=== PATIENT | male | born 1970 | race Caucasian/White ===

== ENCOUNTER → 2017-10-01 08:45 | Outpatient (CLI) | payer MEDICAID ==
[~2017-10-01 08:45] MED LIST: ELOCON45 GM TOPICAL; HUMIRA; LEVOTHYROXINE50 MCG PO; MESALAMINE 1.2 GM; TOPROL XL50 MG PO; TYLENOL W/CODEI1 TAB PO
[2017-10-01 09:19] LABS: BASOPHILS 0.6 % (0-2); EOSINOPHILS 2.4 % (0-7); HEMATOCRIT 50.5 % (42.0-54.0); HEMOGLOBIN 16.9 g/dL (13.5-17.5); IMMATURE GRANULOCYTES 0.3 % (0-5); LYMPHOCYTES 25.4 % (15-50); MCHC 33.5 g/dL (31.0-37.0); MCV 92.7 fL (80.0-100.0); MEAN PLATELET VOLUME 10.6 fL (7.4-10.4); MONOCYTES 7.2 % (2-11); NEUTROPHILS 64.1 % (40-80); PLATELET COUNT 177 10x3/uL (130-400); RBC 5.45 10x6/uL (4.20-6.10); RDW 14.3 % (11.5-14.5); WBC 10.9 10x3/uL (4.8-10.8)
[2017-10-01 09:26] LABS: ALBUMIN 3.2 g/dL (3.4-5.0); ANION GAP 10.6 mmol/L (8-16); BILIRUBIN - TOTAL 0.88 mg/dL (0.2-1.3); CALCIUM 9.1 mg/dL (8.5-10.1); CARBON DIOXIDE 26.6 mmol/L (21.0-32.0); CREATININE - SERUM 1.3 mg/dL (0.6-1.3); POTASSIUM - SERUM 4.2 mmol/L (3.5-5.1); PROTEIN - SERUM 8.6 g/dL (6.4-8.2)
[2017-10-01 10:43] LABS: ERYTHROCYTE SEDIMENTATION RATE 17 mm/hr (0-15)
[2017-11-03 11:28] VITALS: BMI 50.9
== END | disposition home or self-care (01) ==
LOC: D.LAB 08:45 → D.CT 10:00
PROVIDERS: Internal Medicine Gastroenterology
DX: Z80.0 Family history of malignant neoplasm of digestive organs (principal); K50.90 Crohn's disease, unspecified, without complications; R10.32 Left lower quadrant pain

== ENCOUNTER 2017-11-03 10:39 | Day surgery (SDC) | payer MEDICAID ==
[~2017-11-03] VITALS: Ht 185.4 cm; Wt 175.0 kg
--- NOTE | ~2017-11-03 | OP ---
PATIENT NAME: CHAD CARTER MEDICAL RECORD: [id number] :72 LOCATION:[facility] ADMISSION DATE: SURGEON: ROSA CASTANEDA DO DATE OF OPERATION: 11/03/2017 PROCEDURE: Colonoscopy with polypectomy and biopsies. INDICATIONS FOR PROCEDURE: Family history positive for colon cancer in the father, Crohn's disease, left lower quadrant abdominal pain, altered bowel function, nausea. The patient's last colonoscopy was June 052014. SCOPE: Olympus video pediatric colonoscope. MEDICATIONS: Propofol 620 mg IV per anesthesia. WITHDRAWAL TIME: 12 minutes. ESTIMATED BLOOD LOSS: Minimal. COMPLICATIONS: None. FINDINGS: Informed consent was given. The patient was made comfortable with the above medication. After reaching an adequate level of sedation by slow IV push, the patient was placed on his left side. A digital rectal examination was performed and was normal. The endoscope was then advanced under direct visualization through the rectum to the terminal ileum. The endoscope was slowly withdrawn and mucosa was carefully examined. The prep quality was good. There were no obvious signs of inflammation, ulceration, erosions, or other abnormalities noted within the terminal ileum. Random cold forceps biopsies were taken from the site. There was no colitis evident within the colon itself. There were no ulcerations, erosions, changes in vascular pattern, or other findings that would be consistent with colitis. Two polyps were located on the examination. The first was a benign appearing sessile polyp which was located in the descending colon and measured approximately 5-mm in diameter. It was removed using hot forceps in 1 piece and completely retrieved. Second polyp was located in the sigmoid colon. It was a benign appearing sessile polyp, which measured approximately 4 mm in diameter and was removed in 1 piece using hot forceps and completely retrieved. There was evidence of mild to moderate diverticulosis involving the sigmoid colon without evidence of diverticulitis. Retroflexion was performed in the rectum with a normal appearing rectal wall. The endoscope was withdrawn from the patient. The patient tolerated the procedure well and there were no complications. IMPRESSION: 1. Two polyps as described above removed using hot forceps. 2. Midw-ta-gnqgwgta diverticulosis involving the sigmoid colon without evidence of diverticulitis. 3. History of Crohn disease. PLAN AND RECOMMENDATIONS: 1. Discharge home when recovery parameters are met. 2. Follow up biopsy specimen results. 3. High fiber diet. 4. Continue current medications. 5. The patient is scheduled to follow up with Dr. Kasper within the next couple OPERATIVE REPORT [id number] Mode CARTER to determine if surgery is appropriate regarding his history of diverticulitis. If surgery is not planned, I recommend the patient resuming his Humira for his history of spondyloarthropathy as well as Crohn's. 6. Repeat colonoscopy in 2 years regarding the history of Crohn's as well as family history of colon cancer and personal history of polyps. TRANSINT:[id number] Voice Confirmation ID: [id number] DOCUMENT ID: [id number] ROSA CASTANEDA DO at 1651 CC: [id number] DICTATION DATE: 11/03/17 1433 SEARCH ENGINE MARKETING STRATEGIST: 11/03/17 1454 [facility] 11/03/17 [id number] [place] [address]
[2017-11-03] MEDS ORDERED: LEVOTHYROXINE50 MCG PO (11:11)
[2017-11-03] MEDS ORDERED: ELOCON45 GM TOPICAL (11:12)
[2017-11-03] MEDS ORDERED: TOPROL XL50 MG PO (11:12)
[2017-11-03] MEDS ORDERED: TYLENOL W/CODEI1 TAB PO (11:13)
[2017-11-03] MEDS ORDERED: HUMIRA (11:14)
[2017-11-03] MEDS ORDERED: MESALAMINE 1.2 GM (11:14)
[2017-11-03 11:28] VITALS: Ht 185.4 cm; Wt 175.0 kg
[2017-11-03 12:13] LABS: HEMATOCRIT 48.4 % (42.0-54.0); HEMOGLOBIN 16.7 g/dL (13.5-17.5); MCHC 34.5 g/dL (31.0-37.0); MCV 89.8 fL (80.0-100.0); MEAN PLATELET VOLUME 11.2 fL (7.4-10.4); RBC 5.39 10x6/uL (4.20-6.10); RDW 14.2 % (11.5-14.5); WBC 9.9 10x3/uL (4.8-10.8)
== END 2017-11-03 15:32 | disposition home or self-care (01) ==
LOC: D.OPS 10:39
PROVIDERS: Anesthesiology
DX: K63.5 Polyp of colon (principal); K57.30 Diverticulosis of large intestine without perforation or abscess without bleeding; K50.90 Crohn's disease, unspecified, without complications; Z80.0 Family history of malignant neoplasm of digestive organs; Z01.812 Encounter for preprocedural laboratory examination

== ENCOUNTER → 2018-02-16 19:16 | Outpatient (CLI) | payer MEDICAID ==
[2017-11-03 11:28] VITALS: BMI 50.9
== END | disposition home or self-care (01) ==
LOC: D.SLEEP 19:16
DX: G47.33 Obstructive sleep apnea (adult) (pediatric) (principal); Z01.812 Encounter for preprocedural laboratory examination

== ENCOUNTER → 2018-04-02 09:07 | Outpatient (CLI) | payer MEDICAID ==
[2017-11-03 11:28] VITALS: BMI 50.9
[2018-04-02 10:10] LABS: ALBUMIN 2.9 g/dL (3.4-5.0); BILIRUBIN - DIRECT 0.27 mg/dL (0.00-0.30); BILIRUBIN - INDIRECT 0.62 mg/dL (0.00-1.00); BILIRUBIN - TOTAL 0.89 mg/dL (0.2-1.3); PROTEIN - SERUM 8.2 g/dL (6.4-8.2)
== END | disposition home or self-care (01) ==
LOC: D.US 09:07
PROVIDERS: Internal Medicine Gastroenterology
DX: K76.0 Fatty (change of) liver, not elsewhere classified (principal)

== ENCOUNTER 2018-08-17 19:20 | Emergency (ER) | payer MEDICAID ==
[~2018-08-17] VITALS: Ht 185.4 cm; Wt 181.8 kg
[2018-08-17 20:16] VITALS: Ht 185.4 cm; Wt 181.8 kg
[2018-08-17] MEDS ORDERED: HYDROCODON-ACE1 EAC7 PO (20:17)
[2018-08-17] MEDS ORDERED: CYCLOBENZAPRINE10 MG PO (20:18)
[2018-08-18] MEDS ORDERED: TORADOL10 MG PO (03:06)
[2018-08-18 03:21] VITALS: BP 135/60
== END 2018-08-18 03:21 | disposition home or self-care (01) ==
LOC: D.ER 19:20
DX: B34.9 Viral infection, unspecified (principal); M79.18 Myalgia, other site; M54.5 Low back pain

== ENCOUNTER → 2018-10-02 07:57 | Outpatient (CLI) | payer MEDICAID ==
[2018-08-17 20:16] VITALS: BMI 52.8
[~2018-10-02 07:57] MED LIST changes: +CYCLOBENZAPRINE10 MG PO; +HYDROCODON-ACE1 EAC7 PO; +TORADOL10 MG PO
[2018-10-02 09:06] LABS: ALBUMIN 2.8 g/dL (3.4-5.0); BILIRUBIN - DIRECT 0.39 mg/dL (0.00-0.30); BILIRUBIN - INDIRECT 0.88 mg/dL (0.00-1.00); BILIRUBIN - TOTAL 1.27 mg/dL (0.2-1.3); PROTEIN - SERUM 7.4 g/dL (6.4-8.2)
== END | disposition home or self-care (01) ==
LOC: D.US 07:57
PROVIDERS: ATTEND Internal Medicine Gastroenterology
DX: K76.0 Fatty (change of) liver, not elsewhere classified (principal)

== ENCOUNTER → 2018-10-13 10:19 | Outpatient (CLI) | payer MEDICAID | END | disposition home or self-care (01) | LOC: D.CT 10:19 | DX: K50.90 Crohn's disease, unspecified, without complications (principal); R10.9 Unspecified abdominal pain; R19.4 Change in bowel habit ==

== ENCOUNTER → 2018-11-02 07:28 | Outpatient (CLI) | payer MEDICAID ==
[2018-08-17 20:16] VITALS: BMI 52.8
== END | disposition home or self-care (01) ==
LOC: D.HCCARDIO 07:28
PROVIDERS: ATTEND Internal Medicine Interventional Cardiology
DX: I20.9 Angina pectoris, unspecified (principal)

== ENCOUNTER → 2018-11-05 08:03 | Outpatient (CLI) | payer MEDICAID ==
[2018-08-17 20:16] VITALS: BMI 52.8
--- NOTE | ~2018-11-05 | ST ---
PATIENT:CHAD CARTER II MEDICAL RECORD: [id number] SEX: M LOCATION:[facility] ORDER #: ADMISSION DATE: 11/05/18 AGE OF PATIENT: 48 REFERRING PHYSICIAN: INTERPRETING PHYSICIAN: CHERRY GONZALEZ MD DATE OF SERVICE: 11/05/2018 PROCEDURE: Nuclear stress test. INDICATION: Angina, abnormal ECG, and hypertension. He was exercised on standard Lexiscan protocol with 26 mCi of sestamibi injected at peak stress, 9 mCi used previously for rest images. FINDINGS: Gated SPECT reveals a preserved ejection fraction at 67%; however, there is decreased thickening and brightening throughout the inferior segments. SPECT imaging Cardiolite was used as myocardial perfusion agent. There is a fixed perfusion defect inferiorly. This includes the basal, mid, apical inferior segments. There is no evidence of reversibility. In fact, there is improvement or reversed redistribution with stress. OVERALL IMPRESSION: This is a minimally abnormal nuclear stress test, but stable in that there is a fixed perfusion defect inferiorly. No ongoing ischemia and ejection fraction preserved at 67%. Continue medical management of the coronary artery disease and cardiac risk factors. TRANSINT:[id number] Voice Confirmation ID: [id number] DOCUMENT ID: [id number] CHERRY GONZALEZ MD CC: FRANCINE MORENO MD [id number] DICTATION DATE: 11/06/18 0937 WOOL SACKER: 11/07/18 0101 [facility]P CLI 11/05/18 [id number] [place] [address]
== END | disposition home or self-care (01) ==
LOC: D.HCCARDIO 08:03
PROVIDERS: ATTEND Internal Medicine Interventional Cardiology
DX: I20.9 Angina pectoris, unspecified (principal)

== ENCOUNTER → 2019-04-12 07:29 | Outpatient (CLI) | payer MEDICAID ==
[2018-08-17 20:16] VITALS: BMI 52.8
[2019-04-12 08:18] LABS: ALBUMIN 2.6 g/dL (3.4-5.0); BILIRUBIN - DIRECT 0.52 mg/dL (0.00-0.30); BILIRUBIN - INDIRECT 1.07 mg/dL (0.00-1.00); BILIRUBIN - TOTAL 1.59 mg/dL (0.2-1.3); PROTEIN - SERUM 7.2 g/dL (6.4-8.2)
== END | disposition home or self-care (01) ==
LOC: D.US 07:29
PROVIDERS: ATTEND Internal Medicine Gastroenterology
DX: K76.0 Fatty (change of) liver, not elsewhere classified (principal)

== ENCOUNTER → 2019-05-10 08:03 | Outpatient (CLI) | payer OTHER ==
[2018-08-17 20:16] VITALS: BMI 52.8
== END | disposition home or self-care (01) ==
LOC: D.CT 08:03
PROVIDERS: ATTEND Internal Medicine Hematology & Oncology
DX: K75.0 Abscess of liver (principal)

== ENCOUNTER 2019-06-16 07:46 | Outpatient (CLI) | payer MEDICARE ==
[~2019-06-16] VITALS: Ht 185.4 cm; Wt 204.5 kg
[2019-06-16 08:16] LABS: HEMATOCRIT 44.7 % (42.0-54.0); HEMOGLOBIN 15.2 g/dL (13.5-17.5); MCH 32.9 pg (26.0-34.0); MCV 96.8 fL (80.0-100.0); MEAN PLATELET VOLUME 9.8 fL (7.4-10.4); RBC 4.62 10x6/uL (4.20-6.10); RDW 14.3 % (11.5-14.5); WBC 6.7 10x3/uL (4.8-10.8)
[2019-06-16 08:17] LABS: PLATELET COUNT 100 10x3/uL (130-400)
[2019-06-16 08:26] LABS: ANION GAP 6.8 mmol/L (8-16); CALCIUM 8.4 mg/dL (8.5-10.1); CARBON DIOXIDE 28.2 mmol/L (21.0-32.0); CREATININE - SERUM 1.5 mg/dL (0.6-1.3)
[2019-06-16 08:34] LABS: APTT 34.7 SECONDS (22.8-39.4); INR 1.23 (0.85-1.17); PROTIME 14.9 SECONDS (11.6-15.0)
[2019-06-16 08:43] VITALS: Ht 185.4 cm; Wt 204.5 kg
[2019-06-16 09:46] LABS: EOSINOPHILS 2 % (0-7); LYMPHOCYTES 42 % (15-50); MONOCYTES 13 % (2-11); NEUTROPHILS 42 % (40-80); PLATELET ESTIMATE DECREASED
--- NOTE | 2019-06-16 12:40 | NUR ---
1230 RECIEVED A TRAY AND TOLERATED WELL. FREQ VS DONE
--- NOTE | 2019-06-16 13:34 | NUR ---
1325-DISCHARGE CRITERIA MET. DENIES PAIN.VSS. DRESSING TO BACK CDI. REMOVED IV FROM RIGHT ARM WITH CATH INTACT,DISPOSED INTO SHARPS,COVERED SITE WITH COTTON BALL SECURED WITH BANDAID. REVIEWED POST OPERATIVE INSTRUCTIONS.VERBALIZED UNDERSTANDING.
--- NOTE | 2019-06-16 13:36 | NUR ---
1333-PT DRESSED. ESCORTED OUT BY VOLUNTEER W/C,PLEASANT,STABLE WITH DISCHARGE PAPERWORK IN HAND. SPOUSE AWAITING TO DRIVE HOME.
== END 2019-06-16 13:33 | disposition home or self-care (01) ==
LOC: D.OPS 07:46 → D.CT 11:00 → D.SP 11:00 → D.OPS 13:33
PROVIDERS: Radiology Diagnostic Radiology; ATTEND Internal Medicine Hematology & Oncology
DX: D69.6 Thrombocytopenia, unspecified (principal); E03.9 Hypothyroidism, unspecified; K50.90 Crohn's disease, unspecified, without complications; I10 Essential (primary) hypertension

== ENCOUNTER 2020-10-14 14:30 | Emergency (ER) | payer OTHER ==
[~2020-10-14] VITALS: Ht 185.4 cm; Wt 151.8 kg
[2020-10-14 14:38] VITALS: Ht 185.4 cm; Wt 151.8 kg
[2020-10-14] MEDS ORDERED: ASPIRIN81 MG PO (14:43)
[2020-10-14] MEDS ORDERED: ZOFRAN4 MG PO (14:43)
[2020-10-14 15:05] LABS: BASOPHILS 0.9 % (0-2); EOSINOPHILS 2.7 % (0-7); HEMOGLOBIN 17.6 g/dL (13.5-17.5); IMMATURE GRANULOCYTES 0.1 % (0-5); LYMPHOCYTE ABS# 2.93 10x3/uL (1.32-3.57); LYMPHOCYTES 42.2 % (15-50); MCH 31.8 pg (26.0-34.0); MCHC 34.5 g/dL (31.0-37.0); MCV 92.2 fL (80.0-100.0); MEAN PLATELET VOLUME 11.4 fL (7.4-10.4); MONOCYTES 7.9 % (2-11); NEUTROPHIL ABS# 3.21 10x3/uL (1.78-5.38); NEUTROPHILS 46.2 % (40-80); PLATELET COUNT 105 10x3/uL (130-400); RBC 5.53 10x6/uL (4.20-6.10); RDW 14.7 % (11.5-14.5)
[2020-10-14 15:10] LABS: BILIRUBIN NEGATIVE (NEGATIVE); KETONE NEGATIVE (NEGATIVE); NITRITE NEGATIVE (NEGATIVE); UROBILINOGEN 12 mg/dL (< 2)
[2020-10-14 15:15] LABS: SQUAMOUS EPITHELIAL 0-5 HPF (0-4); WHITE CELLS - URINE 0-5 HPF (0-1)
[2020-10-14 15:16] LABS: BACTERIA FEW HPF (NONE SEEN)
[2020-10-14 15:19] LABS: CALC OSMOLALITY 280 mosm/kg (275-300); CALCIUM 9.7 mg/dL (8.5-10.1); CARBON DIOXIDE 26.7 mmol/L (21.0-32.0); CHLORIDE - SERUM 104 mmol/L (98-107); CREATININE - SERUM 1.3 mg/dL (0.6-1.3); SODIUM 140 mmol/L (136-145); UREA NITROGEN 14 mg/dL (7-18); eGFR NON AFRICAN AMERICAN 62 mL/min (90-120)
[2020-10-14 15:20] LABS: GLUCOSE 115 mg/dL (74-106)
[2020-10-14 15:28] LABS: ALBUMIN 3.7 g/dL (3.4-5.0); ALKALINE PHOSPHATASE 87 U/L (30-120); ALT (SGPT) 30 U/L (10-68); AMYLASE - SERUM 73 U/L (25-115); BILIRUBIN - TOTAL 2.17 mg/dL (0.2-1.3); LIPASE 434 U/L (73-393); PROTEIN - SERUM 7.9 g/dL (6.4-8.2); TROPONIN-I < 0.017 ng/mL (0.000-0.060)
[2020-10-14] MEDS ORDERED: COMPAZINE25 MG RC (17:39)
[2020-10-14 17:53] VITALS: BP 128/77
== END 2020-10-14 17:53 | disposition home or self-care (01) ==
LOC: D.ER 14:30
PROVIDERS: Family Medicine
DX: R11.2 Nausea with vomiting, unspecified (principal); R10.9 Unspecified abdominal pain; I10 Essential (primary) hypertension; Z72.0 Tobacco use